=== PATIENT | female | born 1955 | race Caucasian/White ===

== ENCOUNTER 2017-03-10 11:00 | Outpatient (RCR) | payer OTHER, SELFPAY ==
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
--- NOTE | 2017-06-24 15:15 | HP.PT.NRP ---
HP - Discharge Summary (1) - Patient Information ZULEIKA GLYNN was seen in my office for initial evaluation on 03/10/17. The following Plan of Care was established for this patient: Initial Frequency: 3x /Week Initial Duration: 3 Weeks - Anticipated Interventions Patient/Client Instruction: Educate patient on: Condition, Plan of Care For the Purpose of:: To improve self management Therapeutic Exercise to Include: Strength training, Endurance training, Agility training, Postural training, Dynamic Lumbar Stabilization For the Purpose of:: To decrease pain, To increase ROM, To improve muscle performance and motor function Cryotherapy (ice pack, ice massage): Yes For the Purpose of:: To decrease pain This patient was last seen in our office . Pertinent comments regarding their Physical therapy will appear below: Pt was treated for core and LE weakness for 6 visits through the date of 04/05/17. Pt has not returned since that date and is therefore discontinued at this time At this point I will be discontinuing this patient from physical therapy. I would be happy to see this patient again in the future if found appropriate by the physician. Thank you! Cecilio Lemos, PT,
== END 2017-04-01 19:00 | disposition home or self-care (01) ==
LOC: PT 14:57
PROVIDERS: Family Provider Internal Medicine; PCP Internal Medicine; Visit Provider Internal Medicine
DX: R53.1 Weakness (principal)
CPT/HCPCS: 97110; 97162